=== PATIENT | female | born 1950 | race Caucasian/White ===

== ENCOUNTER 2022-05-27 01:30 | Inpatient (IN) | payer MEDICARE ==
[2022-05-27] VITALS (7 sets, daily range): BP systolic 93–131; BP diastolic 39–58
[~2022-05-27] VITALS: Ht 152.4 cm; Wt 79.4 kg
[2022-05-27] MEDS ORDERED: SODIUM CHLORIDE FLUSH 10 ML SYR IV PRN (02:15)
[2022-05-27 02:26] LABS: BASOPHILS % 0.3 % (0.0-1.0); EOSINOPHILS # (AUTO) 0.2 (0.0-0.4); EOSINOPHILS % 1.6 % (0.0-6.0); HEMATOCRIT 25.9 % (34.2-44.1); HEMOGLOBIN 8.6 g/dL (12.0-16.0); LYMPHOCYTES # (AUTO) 1.9 (1.0-3.2); LYMPHOCYTES % 16.5 % (18.0-39.1); MEAN CORPUSCULAR HEMOGLOBIN 34.8 pg (28-32); MEAN CORPUSCULAR HGB CONC 33.2 g/dL (31-35); MEAN CORPUSCULAR VOLUME 104.9 fL (81-99); MONOCYTES # (AUTO) 0.8 (0.2-0.8); MONOCYTES % 6.6 % (4.4-11.3); NEUTROPHILS # (AUTO) 8.6 (2.1-6.9); NEUTROPHILS % 74.6 % (38.7-80.0); PLATELET COUNT 117 x10e3/uL (140-360); RED BLOOD COUNT 2.47 x10e6/uL (3.6-5.1); RED CELL DISTRIBUTION WIDTH 15.8 % (11.7-14.4)
[2022-05-27] MEDS ORDERED: NAPROSYN500 MG PO (02:29)
[2022-05-27] MEDS ORDERED: METHOCARBAMOL500 MG PO (02:29)
[2022-05-27] MEDS ORDERED: CEFDINIR300 MG PO (02:29)
[2022-05-27 02:32] LABS: INR 1.17; PROTHROMBIN TIME 15.9 seconds (11.9-14.5)
[2022-05-27 02:33] LABS: PARTIAL THROMBOPLASTIN TIME 33.1 seconds (23.8-35.5)
[2022-05-27 03:13] LABS: CLARITY,URINE CLOUDY (CLEAR); COLOR,URINE AMBER (YELLOW)
[2022-05-27 03:14] LABS: AMPHETAMINES SCREEN,URINE NEGATIVE (NEGATIVE); KETONES,URINE 1+ (NEGATIVE); LEUKOCYTE ESTERASE ,URINE LARGE (NEGATIVE); NITRITE,URINE POSITIVE (NEGATIVE); PHENCYCLIDINE SCREEN,URINE NEGATIVE (NEGATIVE); PROTEIN,URINE DIPSTICK 2+ (NEGATIVE)
[2022-05-27 03:15] LABS: BENZODIAZEPINES SCREEN,URINE POSITIVE (NEGATIVE); URINE UROBILINOGEN 2 mg/dL (0.2 - 1)
[2022-05-27 03:19] LABS: ALANINE AMINOTRANSFERASE 28 IU/L (0-55); ALBUMIN 4.1 g/dL (3.5-5.0); ALBUMIN/GLOBULIN RATIO 1.1 (0.8-2.0); ALKALINE PHOSPHATASE 62 IU/L (40-150); ANION GAP 20.4 mmol/L (8-16); BLOOD UREA NITROGEN 25 mg/dL (7-26); BUN/CREATININE RATIO 12 (6-25); CARBON DIOXIDE 18 mmol/L (22-29); CHLORIDE 92 mmol/L (98-107); CREATININE, SERUM 2.16 mg/dL (0.57-1.11); GLUCOSE 152 mg/dL (74-118); POTASSIUM 3.4 mmol/L (3.5-5.1); SODIUM 127 mmol/L (136-145)
[2022-05-27 03:27] LABS: BACTERIA,URINE MANY /HPF; EPITHELIAL CELLS,URINE MODERATE /LPF; MUCUS,URINE FEW (RARE); RENAL EPITHELIAL CELLS,URINE FEW; TRANSITIONAL EPI CELLS,URINE FEW; WBC,URINE (MAN) >50 /HPF (0-5)
[2022-05-27 03:44] LABS: THYROID STIMULATING HORMONE 0.332 uIU/mL (0.350-4.940)
[2022-05-27] MEDS ORDERED: ONDANSETRON HCL INJ 2MG/ML 2ML 2 MG/ML VIAL IV PRN (04:30)
[2022-05-27] MEDS: SODIUM CHLORIDE 0.9% 1000ML 1,000 ML IV SCH ×2 (04:52→07:55)
[2022-05-27] MEDS ORDERED: LACTULOSE SYRUP 20 GM/30 ML UDC PO PRN (13:30)
[2022-05-27] MEDS ORDERED: LACTULOSE SYRUP 20 GM/30 ML UDC PO ONE (13:55)
[2022-05-27] MEDS ORDERED: POTASSIUM CHLORIDE 20 MEQ TAB CR PO ONE ×2 (14:30→16:45)
[2022-05-27 14:54] LABS: BASOPHILS % 0.2 % (0.0-1.0); EOSINOPHILS # (AUTO) 0.2 (0.0-0.4); EOSINOPHILS % 1.7 % (0.0-6.0); HEMOGLOBIN 7.4 g/dL (12.0-16.0); LYMPHOCYTES # (AUTO) 1.9 (1.0-3.2); LYMPHOCYTES % 15.5 % (18.0-39.1); MEAN CORPUSCULAR HEMOGLOBIN 34.6 pg (28-32); MEAN CORPUSCULAR VOLUME 104.7 fL (81-99); MONOCYTES # (AUTO) 0.8 (0.2-0.8); MONOCYTES % 6.2 % (4.4-11.3); NEUTROPHILS # (AUTO) 9.5 (2.1-6.9); NEUTROPHILS % 75.8 % (38.7-80.0); PLATELET COUNT 72 x10e3/uL (140-360); RED BLOOD COUNT 2.14 x10e6/uL (3.6-5.1)
[2022-05-27 15:01] LABS: HEMATOCRIT 22.4 % (34.2-44.1)
[2022-05-27 15:11] LABS: ANION GAP 18.1 mmol/L (8-16); CALCIUM 9.8 mg/dL (8.4-10.2); CREATININE, SERUM 2.07 mg/dL (0.57-1.11); POTASSIUM 3.1 mmol/L (3.5-5.1)
[2022-05-27 15:25] LABS: MAGNESIUM 1.5 MG/DL (1.3-2.1)
[2022-05-27 15:46] LABS: FREE T4 (FREE THYROXINE) 1.26 ng/dL (0.8-1.8); THYROID STIMULATING HORMONE 0.192 uIU/mL (0.350-4.940)
[2022-05-28] VITALS (8 sets, daily range): BP systolic 102–126; BP diastolic 43–63
[2022-05-28] MEDS ORDERED: OMEPRAZOLE40 MG PO (06:31)
[2022-05-28] MEDS ORDERED: SYNTHROID112 MCG PO (06:31)
[2022-05-28] MEDS ORDERED: ATENOLOL25 MG PO (06:31)
[2022-05-28] MEDS ORDERED: TRIAMTERENE-HC1 EAC2 PO (06:31)
[2022-05-28] MEDS ORDERED: VENLAFAXINE HCL75 M1 PO (06:31)
[2022-05-28] MEDS ORDERED: FOLIC (06:31)
[2022-05-28] MEDS ORDERED: MIRALAX17 GM PO (06:36)
[2022-05-28] MEDS ORDERED: HYDROCODON-ACE1 EAC9 PO (06:36)
[2022-05-28] MEDS ORDERED: CEPHALEXIN250 MG PO (06:36)
[2022-05-28 06:44] LABS: ANION GAP 16.2 mmol/L (8-16); CREATININE, SERUM 1.83 mg/dL (0.57-1.11); POTASSIUM 3.2 mmol/L (3.5-5.1)
[2022-05-28 06:45] LABS: ALBUMIN 3.3 g/dL (3.5-5.0); ALBUMIN/GLOBULIN RATIO 1.1 (0.8-2.0); CALCIUM 9.8 mg/dL (8.4-10.2)
[2022-05-28 06:47] LABS: BASOPHILS % 0.3 % (0.0-1.0); EOSINOPHILS # (AUTO) 0.3 (0.0-0.4); EOSINOPHILS % 2.6 % (0.0-6.0); HEMOGLOBIN 7.1 g/dL (12.0-16.0); LYMPHOCYTES # (AUTO) 2.2 (1.0-3.2); LYMPHOCYTES % 19.7 % (18.0-39.1); MEAN CORPUSCULAR HEMOGLOBIN 35.1 pg (28-32); MEAN CORPUSCULAR HGB CONC 34.8 g/dL (31-35); MONOCYTES # (AUTO) 0.9 (0.2-0.8); MONOCYTES % 7.6 % (4.4-11.3); NEUTROPHILS # (AUTO) 7.7 (2.1-6.9); NEUTROPHILS % 69.1 % (38.7-80.0); RED BLOOD COUNT 2.02 x10e6/uL (3.6-5.1); RED CELL DISTRIBUTION WIDTH 16.8 % (11.7-14.4)
[2022-05-28 06:51] LABS: HEMATOCRIT 20.4 % (34.2-44.1); PLATELET COUNT 54 x10e3/uL (140-360)
[2022-05-28] MEDS ORDERED: POTASSIUM CHLORIDE 20 MEQ TAB CR PO ONE (07:30)
[2022-05-28] MEDS: IRON SUCROSE 100 MG in SODIUM CHLORIDE 0.9% 100 ML IV SCH (09:33)
[2022-05-28] MEDS ORDERED: SODIUM CHLORIDE 0.9% 250ML 250 ML ONE (09:54)
[2022-05-28] MEDS: ACETAMINOPHEN 325 MG TAB PO PRN ×2 (11:21→22:21)
[2022-05-29] VITALS (7 sets, daily range): BP systolic 97–148; BP diastolic 58–82
[2022-05-29] MEDS ORDERED: DIPHENHYDRAMINE HCL 25 MG CAP PO PRN (00:45)
[2022-05-29] MEDS: ACETAMINOPHEN 325 MG TAB PO PRN (05:01)
[2022-05-29 06:27] LABS: BASOPHILS % 0.4 % (0.0-1.0); EOSINOPHILS # (AUTO) 0.2 (0.0-0.4); EOSINOPHILS % 2.3 % (0.0-6.0); HEMATOCRIT 21.4 % (34.2-44.1); HEMOGLOBIN 7.3 g/dL (12.0-16.0); LYMPHOCYTES # (AUTO) 2.1 (1.0-3.2); LYMPHOCYTES % 22.8 % (18.0-39.1); MEAN CORPUSCULAR HEMOGLOBIN 35.3 pg (28-32); MEAN CORPUSCULAR HGB CONC 34.1 g/dL (31-35); MEAN CORPUSCULAR VOLUME 103.4 fL (81-99); MONOCYTES % 11.1 % (4.4-11.3); NEUTROPHILS # (AUTO) 5.8 (2.1-6.9); NEUTROPHILS % 62.6 % (38.7-80.0); PLATELET COUNT 76 x10e3/uL (140-360); RED BLOOD COUNT 2.07 x10e6/uL (3.6-5.1); RED CELL DISTRIBUTION WIDTH 17.3 % (11.7-14.4)
[2022-05-29 06:38] LABS: ANION GAP 17.9 mmol/L (8-16); CALCIUM 9.8 mg/dL (8.4-10.2); CREATININE, SERUM 1.81 mg/dL (0.57-1.11); POTASSIUM 3.9 mmol/L (3.5-5.1)
[2022-05-29 06:46] LABS: ALBUMIN 3.6 g/dL (3.5-5.0); BILIRUBIN,DIRECT 1.2 mg/dL (0.0-0.5)
[2022-05-29] MEDS: IRON SUCROSE 100 MG in SODIUM CHLORIDE 0.9% 100 ML IV SCH (08:39)
[2022-05-29] MEDS ORDERED: ONDANSETRON HCL 4 MG ORAL DISINTEGRATING TAB PO PRN (11:45)
[2022-05-29] MEDS ORDERED: CALCIUM CARBONATE 500 MG CHEWABLE TABS PO PRN (13:00)
[2022-05-29] MEDS: PANTOPRAZOLE SOD 40 MG TABEC PO SCH (13:21)
[2022-05-29] MEDS ORDERED: METOPROLOL TARTRATE 25 MG TAB PO SCH (21:00)
[2022-05-30] VITALS: BP 121/42
[2022-05-30 04:00] VITALS: BP 99/64
[2022-05-30 05:48] LABS: BASOPHILS % 0.6 % (0.0-1.0); EOSINOPHILS # (AUTO) 0.4 (0.0-0.4); EOSINOPHILS % 5.8 % (0.0-6.0); HEMATOCRIT 21.9 % (34.2-44.1); HEMOGLOBIN 7.1 g/dL (12.0-16.0); LYMPHOCYTES # (AUTO) 1.6 (1.0-3.2); LYMPHOCYTES % 25.3 % (18.0-39.1); MEAN CORPUSCULAR HGB CONC 32.4 g/dL (31-35); MEAN CORPUSCULAR VOLUME 107.9 fL (81-99); MONOCYTES # (AUTO) 0.8 (0.2-0.8); MONOCYTES % 13.1 % (4.4-11.3); NEUTROPHILS # (AUTO) 3.5 (2.1-6.9); NEUTROPHILS % 54.7 % (38.7-80.0); PLATELET COUNT 81 x10e3/uL (140-360); RED BLOOD COUNT 2.03 x10e6/uL (3.6-5.1); RED CELL DISTRIBUTION WIDTH 18.3 % (11.7-14.4)
[2022-05-30 06:10] LABS: ALBUMIN 3.3 g/dL (3.5-5.0); ANION GAP 15.8 mmol/L (8-16); CALCIUM 9.8 mg/dL (8.4-10.2); CREATININE, SERUM 1.33 mg/dL (0.57-1.11); POTASSIUM 3.8 mmol/L (3.5-5.1)
[2022-05-30 07:04] LABS: ANISOCYTOSIS MODERATE; HYPOCHROMASIA SLIGHT; OVALOCYTES FEW; PLATELET ESTIMATE MODERATELY DECREASED; PLATELET MORPHOLOGY COMMENT NORMAL; RBC MORPHOLOGY COMMENT ABNORMAL
[2022-05-30] MEDS: PANTOPRAZOLE SOD 40 MG TABEC PO SCH (08:43)
[2022-05-30] MEDS: IRON SUCROSE 100 MG in SODIUM CHLORIDE 0.9% 100 ML IV SCH (09:00)
[2022-05-30 09:25] VITALS: BP 104/62
[2022-05-30 12:55] VITALS: BP 117/60
[2022-05-30 16:53] VITALS: BP 108/60
== END 2022-05-30 18:43 | disposition home or self-care (01) | DRG 689 ==
LOC: ER 02:07 → ERHOLD 04:38 → MED/SURG2 07:23
PROVIDERS: ADMIT Internal Medicine; ATTEND Internal Medicine
DX: N30.90 Cystitis, unspecified without hematuria (principal); G93.41 Metabolic encephalopathy; E87.1 Hypo-osmolality and hyponatremia; N17.9 Acute kidney failure, unspecified; Z16.29 Resistance to other single specified antibiotic; D50.9 Iron deficiency anemia, unspecified; E07.81 Sick-euthyroid syndrome; K82.8 Other specified diseases of gallbladder; I10 Essential (primary) hypertension; D69.6 Thrombocytopenia, unspecified; Z88.1 Allergy status to other antibiotic agents; B96.20 Unspecified Escherichia coli [E. coli] as the cause of diseases classified elsewhere; M06.9 Rheumatoid arthritis, unspecified; E03.9 Hypothyroidism, unspecified; Z87.11 Personal history of peptic ulcer disease; D64.9 Anemia, unspecified; Z20.822 Contact with and (suspected) exposure to COVID-19
CPT/HCPCS: 0223U; 36415; 70450; 71045; 74176; 76705; 80048; 80053; 80076; 80307; 81001; 82140; 82248; 82607; 83540; 83735; 84436; 84439; 84443; 84466; 84479; 84484; 85025; 85610; 85730; 87086; 87186; 93005; 94760; 99284; J0696; J1756; J7030; J7050

== ENCOUNTER 2022-06-10 15:39 | Inpatient (IN) | payer MEDICARE ==
[~2022-06-10] VITALS: Ht 152.4 cm; Wt 82.1 kg
[~2022-06-10 15:39] MED LIST: ATENOLOL25 MG PO; CEFDINIR300 MG PO; CEPHALEXIN250 MG PO; FOLIC; HYDROCODON-ACE1 EAC9 PO; METHOCARBAMOL500 MG PO; MIRALAX17 GM PO; NAPROSYN500 MG PO; OMEPRAZOLE40 MG PO; SYNTHROID112 MCG PO; TRIAMTERENE-HC1 EAC2 PO; VENLAFAXINE HCL75 M1 PO
[2022-06-10 16:23] LABS: BASOPHILS # (AUTO) 0.1 (0.0-0.1); BASOPHILS % 1.6 % (0.0-1.0); EOSINOPHILS # (AUTO) 0.2 (0.0-0.4); HEMATOCRIT 24.9 % (34.2-44.1); HEMOGLOBIN 8.1 g/dL (12.0-16.0); LYMPHOCYTES # (AUTO) 1.3 (1.0-3.2); LYMPHOCYTES % 29.1 % (18.0-39.1); MEAN CORPUSCULAR HEMOGLOBIN 35.7 pg (28-32); MEAN CORPUSCULAR HGB CONC 32.5 g/dL (31-35); MEAN CORPUSCULAR VOLUME 109.7 fL (81-99); MONOCYTES # (AUTO) 0.6 (0.2-0.8); NEUTROPHILS # (AUTO) 2.3 (2.1-6.9); NEUTROPHILS % 51.4 % (38.7-80.0); PLATELET COUNT 164 x10e3/uL (140-360); RED BLOOD COUNT 2.27 x10e6/uL (3.6-5.1)
[2022-06-10 16:45] LABS: ALBUMIN 3.4 g/dL (3.5-5.0); ALBUMIN/GLOBULIN RATIO 0.9 (0.8-2.0); ANION GAP 15.8 mmol/L (8-16); CALCIUM 9.5 mg/dL (8.4-10.2); CREATININE, SERUM 1.55 mg/dL (0.57-1.11); POTASSIUM 3.8 mmol/L (3.5-5.1)
[2022-06-10 16:50] LABS: AMPHETAMINES SCREEN,URINE NEGATIVE (NEGATIVE); BENZODIAZEPINES SCREEN,URINE NEGATIVE (NEGATIVE); PHENCYCLIDINE SCREEN,URINE NEGATIVE (NEGATIVE)
[2022-06-10 16:53] LABS: CREATINE KINASE MB 7.2 ng/mL (0-5.0)
[2022-06-10] MEDS ORDERED: FUROSEMIDE INJ 10 MG/ML 4 ML VIAL IV ONE (20:00)
[2022-06-10] MEDS ORDERED: HYDRALAZINE HCL 20 MG/ML VIAL IV PRN (20:00)
[2022-06-10] MEDS ORDERED: CLONIDINE HCL 0.1 MG TAB PO PRN (20:00)
[2022-06-10] MEDS ORDERED: ACETAMINOPHEN 325 MG TAB PO PRN (20:00)
[2022-06-10 20:10] LABS: % IRON SATURATION 23 % (15-50); IRON 70 ug/dL (50-170); TOTAL IRON BINDING CAPACITY 309 ug/dL (261-478); TRANSFERRIN 221 mg/dL (180-382)
[2022-06-10 20:48] VITALS: BP 100/56
[2022-06-10] MEDS ORDERED: HYDROCODON-ACE1 EAC9 (23:23)
[2022-06-10] MEDS ORDERED: CLINDAMYCIN PO (23:23)
[2022-06-11] VITALS (7 sets, daily range): BP systolic 97–137; BP diastolic 47–75
[2022-06-11 00:40] LABS: CREATINE KINASE MB 4.9 ng/mL (0-5.0)
[2022-06-11 05:15] LABS: BASOPHILS # (AUTO) 0.1 (0.0-0.1); BASOPHILS % 1.2 % (0.0-1.0); EOSINOPHILS # (AUTO) 0.2 (0.0-0.4); EOSINOPHILS % 3.9 % (0.0-6.0); HEMATOCRIT 24.7 % (34.2-44.1); LYMPHOCYTES # (AUTO) 1.9 (1.0-3.2); LYMPHOCYTES % 39.7 % (18.0-39.1); MEAN CORPUSCULAR HEMOGLOBIN 35.6 pg (28-32); MEAN CORPUSCULAR HGB CONC 32.4 g/dL (31-35); MEAN CORPUSCULAR VOLUME 109.8 fL (81-99); MONOCYTES # (AUTO) 0.7 (0.2-0.8); MONOCYTES % 15.3 % (4.4-11.3); NEUTROPHILS # (AUTO) 1.9 (2.1-6.9); NEUTROPHILS % 39.5 % (38.7-80.0); PLATELET COUNT 161 x10e3/uL (140-360); RED BLOOD COUNT 2.25 x10e6/uL (3.6-5.1); RED CELL DISTRIBUTION WIDTH 20.6 % (11.7-14.4)
[2022-06-11 05:38] LABS: ALBUMIN 3.4 g/dL (3.5-5.0); ALBUMIN/GLOBULIN RATIO 0.9 (0.8-2.0); ANION GAP 15.7 mmol/L (8-16); CALCIUM 9.6 mg/dL (8.4-10.2); CREATININE, SERUM 1.57 mg/dL (0.57-1.11); POTASSIUM 3.7 mmol/L (3.5-5.1)
[2022-06-11] MEDS ORDERED: LEVOTHYROXINE SODIUM 112 MCG TAB PO SCH (06:00)
[2022-06-11 06:24] LABS: CREATINE KINASE MB 5.2 ng/mL (0-5.0)
[2022-06-11 07:46] LABS: EOSINOPHILS % (MANUAL) 4 % (0-7); LYMPHOCYTES % (MANUAL) 31 % (19-48); MONOCYTES % (MANUAL) 16 % (3.4-9.0); MYELOCYTES % (MANUAL) 1 % (0-0); NEUTROPHILS % (MANUAL) 48 % (40-74); NUCLEATED RED BLOOD CELLS 1; PLATELET ESTIMATE ADEQUATE
[2022-06-11 07:47] LABS: PLATELET MORPHOLOGY COMMENT NORMAL; RBC MORPHOLOGY COMMENT NORMAL
[2022-06-11] MEDS ORDERED: FUROSEMIDE INJ 10 MG/ML 4 ML VIAL IV SCH (09:00)
[2022-06-11] MEDS ORDERED: VENLAFAXINE HCL 75 MG CAPCR PO SCH (09:00)
[2022-06-11] MEDS: ATENOLOL 50 MG TAB PO SCH (09:27)
[2022-06-11] MEDS: PANTOPRAZOLE SOD 40 MG TABEC PO SCH (09:27)
[2022-06-11] MEDS: TRIAMTERENE/HCTZ 37.5-25 MG TAB PO SCH (09:28)
[2022-06-11 11:02] LABS: CLARITY,URINE CLEAR (CLEAR); COLOR,URINE YELLOW (YELLOW)
[2022-06-11 11:03] LABS: KETONES,URINE NEGATIVE (NEGATIVE); LEUKOCYTE ESTERASE ,URINE NEGATIVE (NEGATIVE); NITRITE,URINE NEGATIVE (NEGATIVE); PROTEIN,URINE DIPSTICK NEGATIVE (NEGATIVE); URINE UROBILINOGEN 0.2 mg/dL (0.2 - 1)
[2022-06-11 11:27] LABS: BACTERIA,URINE FEW /HPF; EPITHELIAL CELLS,URINE FEW /LPF; RBC,URINE 0-5 /HPF (0-5); WBC,URINE (MAN) 0-5 /HPF (0-5)
[2022-06-11 12:11] LABS: CHOL/HDL RATIO 3.9 (3.0-3.6)
[2022-06-11 12:31] LABS: THYROID STIMULATING HORMONE 0.105 uIU/mL (0.350-4.940)
[2022-06-11] MEDS: ONDANSETRON HCL INJ 2MG/ML 2ML 2 MG/ML VIAL IV PRN (13:39)
[2022-06-11] MEDS: ENOXAPARIN 30 MG/0.3 ML SYR SC SCH (16:33)
[2022-06-11] MEDS: FUROSEMIDE INJ 10 MG/ML 4 ML VIAL IV SCH (16:33)
[2022-06-11] MEDS: HYDROCODONE/APAP 10MG-325MG TAB PO PRN (22:41)
[2022-06-12] VITALS (7 sets, daily range): BP systolic 116–133; BP diastolic 50–63
[2022-06-12 05:29] LABS: EOSINOPHILS # (AUTO) 0.1 (0.0-0.4); EOSINOPHILS % 3.6 % (0.0-6.0); HEMATOCRIT 24.7 % (34.2-44.1); HEMOGLOBIN 8.2 g/dL (12.0-16.0); LYMPHOCYTES # (AUTO) 1.7 (1.0-3.2); LYMPHOCYTES % 43.5 % (18.0-39.1); MEAN CORPUSCULAR HEMOGLOBIN 35.7 pg (28-32); MEAN CORPUSCULAR HGB CONC 33.2 g/dL (31-35); MEAN CORPUSCULAR VOLUME 107.4 fL (81-99); MONOCYTES # (AUTO) 0.7 (0.2-0.8); MONOCYTES % 18.8 % (4.4-11.3); NEUTROPHILS # (AUTO) 1.3 (2.1-6.9); NEUTROPHILS % 32.6 % (38.7-80.0); PLATELET COUNT 130 x10e3/uL (140-360); RED CELL DISTRIBUTION WIDTH 20.3 % (11.7-14.4)
[2022-06-12] MEDS: LEVOTHYROXINE SODIUM 100 MCG TAB PO SCH (05:59)
[2022-06-12 06:32] LABS: ALBUMIN 3.3 g/dL (3.5-5.0); ANION GAP 15.3 mmol/L (8-16); CALCIUM 9.2 mg/dL (8.4-10.2); CREATININE, SERUM 1.87 mg/dL (0.57-1.11); POTASSIUM 3.3 mmol/L (3.5-5.1)
[2022-06-12 06:50] LABS: CHOL/HDL RATIO 4.5 (3.0-3.6)
[2022-06-12 07:10] LABS: THYROID STIMULATING HORMONE 0.107 uIU/mL (0.350-4.940)
[2022-06-12] MEDS: PANTOPRAZOLE SOD 40 MG TABEC PO SCH (07:42)
[2022-06-12 08:23] LABS: PLATELET ESTIMATE ADEQUATE
[2022-06-12 08:24] LABS: ANISOCYTOSIS SLIGHT; PLATELET MORPHOLOGY COMMENT NORMAL; RBC MORPHOLOGY COMMENT ABNORMAL
[2022-06-12] MEDS: TRIAMTERENE/HCTZ 37.5-25 MG TAB PO SCH (09:11)
[2022-06-12] MEDS: FUROSEMIDE INJ 10 MG/ML 4 ML VIAL IV SCH (09:11)
[2022-06-12] MEDS: POLYETHYLENE GLYCOL 3350 17 GM PACK PO SCH (09:11)
[2022-06-12] MEDS: ATENOLOL 50 MG TAB PO SCH (09:13)
[2022-06-12] MEDS ORDERED: POTASSIUM CHLORIDE 10MEQ EA PO ONE (09:30)
[2022-06-12] MEDS ORDERED: SODIUM CHLORIDE 0.9% 1000ML 1,000 ML IV ONE (11:15)
[2022-06-12] MEDS: ONDANSETRON HCL INJ 2MG/ML 2ML 2 MG/ML VIAL IV PRN (12:29)
[2022-06-12] MEDS: ENOXAPARIN 30 MG/0.3 ML SYR SC SCH (16:26)
[2022-06-12] MEDS: HYDROCODONE/APAP 10MG-325MG TAB PO PRN (23:08)
[2022-06-13] VITALS: BP 150/66
[2022-06-13 04:00] VITALS: BP 137/72
[2022-06-13] MEDS: LEVOTHYROXINE SODIUM 100 MCG TAB PO SCH (05:40)
[2022-06-13 05:42] LABS: ALBUMIN 3.2 g/dL (3.5-5.0); ANION GAP 15.6 mmol/L (8-16); CALCIUM 8.9 mg/dL (8.4-10.2); CREATININE, SERUM 1.91 mg/dL (0.57-1.11); MAGNESIUM 1.6 MG/DL (1.3-2.1); POTASSIUM 3.6 mmol/L (3.5-5.1)
[2022-06-13 08:00] VITALS: BP 115/64
[2022-06-13 08:09] VITALS: BP 115/64
[2022-06-13] MEDS: POLYETHYLENE GLYCOL 3350 17 GM PACK PO SCH (08:42)
[2022-06-13] MEDS: ATENOLOL 50 MG TAB PO SCH (08:43)
[2022-06-13] MEDS: HYDROCODONE/APAP 10MG-325MG TAB PO PRN (08:50)
[2022-06-13] MEDS: PANTOPRAZOLE SOD 40 MG TABEC PO SCH (08:53)
[2022-06-13] MEDS ORDERED: FUROSEMIDE 40 MG TAB PO SCH (09:00)
[2022-06-13] MEDS ORDERED: DOXYCYCLINE HY100 MG PO (11:33)
[2022-06-13] MEDS ORDERED: ADVAIR 250-501 EACH INH (11:52)
[2022-06-13] MEDS ORDERED: NYSTATIN-TRIAMC15 GM TOP (11:53)
[2022-06-13] MEDS ORDERED: ONDANSETRON HCL 4 MG ORAL DISINTEGRATING TAB PO PRN (12:00)
[2022-06-13 12:02] VITALS: BP 132/63
== END 2022-06-13 14:38 | disposition home or self-care (01) | DRG 194 ==
LOC: ER 15:43 → INTOOBSV 17:02 → ERHOLD 17:02 → MED/SURG 19:48 → OBSVTOIN 06-12 12:07
PROVIDERS: ADMIT Internal Medicine; ATTEND Internal Medicine
DX: J18.9 Pneumonia, unspecified organism (principal); I13.0 Hypertensive heart and chronic kidney disease with heart failure and stage 1 through stage 4 chronic kidney disease, or unspecified chronic kidney disease; N17.9 Acute kidney failure, unspecified; I50.32 Chronic diastolic (congestive) heart failure; R60.0 Localized edema; Z20.822 Contact with and (suspected) exposure to COVID-19; I12.9 Hypertensive chronic kidney disease with stage 1 through stage 4 chronic kidney disease, or unspecified chronic kidney disease; N18.9 Chronic kidney disease, unspecified; E03.9 Hypothyroidism, unspecified; M06.9 Rheumatoid arthritis, unspecified; N18.32 Chronic kidney disease, stage 3b; Z88.3 Allergy status to other anti-infective agents; Z88.0 Allergy status to penicillin; E88.09 Other disorders of plasma-protein metabolism, not elsewhere classified; R11.0 Nausea; D64.9 Anemia, unspecified; J45.909 Unspecified asthma, uncomplicated; K86.89 Other specified diseases of pancreas; Z96.653 Presence of artificial knee joint, bilateral; Z79.891 Long term (current) use of opiate analgesic; G89.29 Other chronic pain
CPT/HCPCS: 0223U; 36415; 71045; 71250; 74176; 76770; 80053; 80061; 80307; 81001; 82550; 82553; 83540; 83735; 83880; 84443; 84466; 84484; 85025; 86039; 86160; 86235; 86850; 86900; 93005; 93306; 94799; 99284; G0378; J0696; J1650; J1940; J2405; J7030